=== PATIENT | male | born 1995 | race African-American/Black ===

== ENCOUNTER 2021-10-12 23:26 | Emergency (ER) | payer OTHER ==
[~2021-10-12] VITALS: Ht 195.6 cm; Wt 81.6 kg
[2021-10-12 23:34] VITALS: BP 142/73
[2021-10-13] MEDS ORDERED: IBUP-1957 PO (00:28)
[2021-10-13] MEDS ORDERED: CYCL10TA9 PO (00:28)
[2021-10-13] MEDS ORDERED: NAPROXEN 250 MG TABLET ONE (00:36)
[2021-10-13] MEDS ORDERED: CYCLOBENZAPRINE 10 MG TABLET ONE (00:36)
[2021-10-13] MEDS: CYCLOBENZAPRINE 10 MG TABLET PO ONE (00:39)
[2021-10-13] MEDS: NAPROXEN 500 MG TABLET PO SCH (00:39)
--- NOTE | 2021-10-13 00:39 | NUR ---
Patient discharged to home in stable condition. Written and verbal after care instructions given. Patient verbalizes understanding of instruction.
== END 2021-10-13 00:39 | disposition home or self-care (01) ==
LOC: ER 23:28
DX: S39.011A Strain of muscle, fascia and tendon of abdomen, initial encounter (principal); Z79.899 Other long term (current) drug therapy; X50.0XXA Overexertion from strenuous movement or load, initial encounter; Y93.43 Activity, gymnastics; Y92.39 Other specified sports and athletic area as the place of occurrence of the external cause; Y99.8 Other external cause status